=== PATIENT | female | born 1960 | race Hispanic/Latino ===

== ENCOUNTER 2017-07-29 04:05 | Emergency (ER) | payer BC, OTHER ==
[~2017-07-29] VITALS: Ht 157.5 cm; Wt 68.0 kg
[~2017-07-29 04:05] MED LIST: ADVIL200 M1 PO; IBUPROFEN600 MG PO; LIDODERM700 MG TOP; ROBAXIN500 MG PO
[2017-07-29] MEDS ORDERED: NORCO 5-325 TA1 EACH PO (04:16)
== END 2017-07-29 06:45 | disposition short-term general hospital (02) ==
LOC: ED 04:05
DX: I60.9 Nontraumatic subarachnoid hemorrhage, unspecified (principal)
CPT/HCPCS: 70450; 80053; 85025; 85610; 85730; 96361; 96374; 96375; 99285; J1200; J1885; J2765; J7030